=== PATIENT | male | born 1990 | race African-American/Black ===

== ENCOUNTER 2023-10-07 14:41 | Emergency (ER) | payer MEDICAID, OTHER ==
[~2023-10-07] VITALS: Ht 180.3 cm; Wt 81.6 kg
[2023-10-07 14:51] VITALS: BP 114/63; PULSE 74; RESP 16; TEMP 98.8; O2SAT 100
[2023-10-07] MEDS ORDERED: PERM60CR4 TP (16:05)
[2023-10-07] MEDS ORDERED: TERB250T88 MT (16:05)
== END 2023-10-07 19:49 | disposition home or self-care (01) ==
LOC: ER 14:41
DX: F22 Delusional disorders (principal); B86 Scabies; E11.9 Type 2 diabetes mellitus without complications; Z86.59 Personal history of other mental and behavioral disorders
CPT/HCPCS: 99283

== ENCOUNTER 2024-02-13 01:35 | Emergency (ER) | payer MEDICARE, MEDICAID ==
[~2024-02-13] VITALS: Ht 180.3 cm; Wt 84.0 kg
[~2024-02-13 01:35] MED LIST: PERM60CR4 TP; TERB250T88 MT
[2024-02-13 02:31] VITALS: O2SAT 99
[2024-02-13 02:38] VITALS: BP 134/89; PULSE 112; RESP 16; TEMP 98.6; O2SAT 100
[2024-02-13] MEDS ORDERED: ACET-2708 MT (04:27)
[2024-02-13] MEDS ORDERED: IBUP-2028 MT (04:27)
[2024-02-13] MEDS ORDERED: CAPS42.514 TP (04:27)
== END 2024-02-13 05:10 | disposition home or self-care (01) ==
LOC: ER 01:35
DX: M79.671 Pain in right foot (principal); G47.00 Insomnia, unspecified; E11.9 Type 2 diabetes mellitus without complications; Z59.00 Homelessness unspecified; Z79.899 Other long term (current) drug therapy; Z86.59 Personal history of other mental and behavioral disorders
CPT/HCPCS: 99282

== ENCOUNTER 2024-02-13 05:53 | Emergency (ER) | payer MEDICARE, MEDICAID ==
[~2024-02-13] VITALS: Ht 177.8 cm; Wt 81.0 kg
[~2024-02-13 05:53] MED LIST changes: +ACET-2708 MT; +CAPS42.514 TP; +IBUP-2028 MT
[2024-02-13 05:57] VITALS: BP 135/94; RESP 16; TEMP 98.2; O2SAT 100
[2024-02-13 06:03] VITALS: PULSE 103; O2SAT 100
== END 2024-02-13 07:10 | disposition left against medical advice (07) ==
LOC: ER 06:03
DX: M79.671 Pain in right foot (principal); Z53.21 Procedure and treatment not carried out due to patient leaving prior to being seen by health care provider